=== PATIENT | female | born 1965 | race Hispanic/Latino ===

== ENCOUNTER → 2017-05-21 | Outpatient (CLI) | payer MEDICARE ==
[2017-05-21 08:28] VITALS: BP 140/72
== END | disposition home or self-care (01) ==
LOC: WHH 08:00
PROVIDERS: ATTEND Family Medicine
DX: E11.622 Type 2 diabetes mellitus with other skin ulcer (principal); L97.821 Non-pressure chronic ulcer of other part of left lower leg limited to breakdown of skin; I10 Essential (primary) hypertension; G89.4 Chronic pain syndrome; E66.01 Morbid (severe) obesity due to excess calories; E11.51 Type 2 diabetes mellitus with diabetic peripheral angiopathy without gangrene; E11.319 Type 2 diabetes mellitus with unspecified diabetic retinopathy without macular edema; G47.30 Sleep apnea, unspecified; E78.5 Hyperlipidemia, unspecified
CPT/HCPCS: A6253; A6452; G0463

== ENCOUNTER → 2017-05-26 | Outpatient (CLI) | payer MEDICARE ==
[~2017-05-26] MED LIST: LIDOCAINE/PRILOCAINE CREAM 5GM TUBE TP ONE; SANTYL AUTOSUB TO MEDIHONEY FOR INPT TP ONE
[2017-05-26 18:41] VITALS: BP 139/72
== END | disposition home or self-care (01) ==
LOC: WHH 13:45
PROVIDERS: ATTEND Family Medicine
DX: T81.89XD Other complications of procedures, not elsewhere classified, subsequent encounter (principal); E11.51 Type 2 diabetes mellitus with diabetic peripheral angiopathy without gangrene; G47.30 Sleep apnea, unspecified; G89.4 Chronic pain syndrome; E66.01 Morbid (severe) obesity due to excess calories; E11.319 Type 2 diabetes mellitus with unspecified diabetic retinopathy without macular edema; I10 Essential (primary) hypertension; E78.5 Hyperlipidemia, unspecified; Y83.8 Other surgical procedures as the cause of abnormal reaction of the patient, or of later complication, without mention of misadventure at the time of the procedure
CPT/HCPCS: 11042; A4450; A6253; J3490

== ENCOUNTER → 2017-05-27 | Outpatient (CLI) | payer MEDICARE ==
[2017-05-27 15:38] VITALS: BP 141/86
== END | disposition home or self-care (01) ==
LOC: WHH 14:00
PROVIDERS: ATTEND Family Medicine
DX: E11.622 Type 2 diabetes mellitus with other skin ulcer (principal); L97.821 Non-pressure chronic ulcer of other part of left lower leg limited to breakdown of skin; E11.51 Type 2 diabetes mellitus with diabetic peripheral angiopathy without gangrene; E11.319 Type 2 diabetes mellitus with unspecified diabetic retinopathy without macular edema; G89.4 Chronic pain syndrome; I10 Essential (primary) hypertension; E78.5 Hyperlipidemia, unspecified; G47.30 Sleep apnea, unspecified; E66.01 Morbid (severe) obesity due to excess calories
CPT/HCPCS: A6252; G0463

== ENCOUNTER → 2017-05-28 | Outpatient (CLI) | payer MEDICARE ==
[2017-05-28 08:27] VITALS: BP 135/76
== END | disposition home or self-care (01) ==
LOC: WHH 08:00
PROVIDERS: ATTEND Family Medicine
DX: E11.622 Type 2 diabetes mellitus with other skin ulcer (principal); L97.821 Non-pressure chronic ulcer of other part of left lower leg limited to breakdown of skin; E11.51 Type 2 diabetes mellitus with diabetic peripheral angiopathy without gangrene; E11.319 Type 2 diabetes mellitus with unspecified diabetic retinopathy without macular edema; G89.4 Chronic pain syndrome; I10 Essential (primary) hypertension; E78.5 Hyperlipidemia, unspecified; G47.30 Sleep apnea, unspecified; E66.01 Morbid (severe) obesity due to excess calories
CPT/HCPCS: A6253; G0463

== ENCOUNTER → 2017-05-29 | Outpatient (CLI) | payer MEDICARE ==
[2017-05-29 08:16] VITALS: BP 135/53
== END | disposition home or self-care (01) ==
LOC: WHH 08:00
PROVIDERS: ATTEND Family Medicine
DX: E11.622 Type 2 diabetes mellitus with other skin ulcer (principal); L97.821 Non-pressure chronic ulcer of other part of left lower leg limited to breakdown of skin; E11.51 Type 2 diabetes mellitus with diabetic peripheral angiopathy without gangrene; E11.319 Type 2 diabetes mellitus with unspecified diabetic retinopathy without macular edema; G89.4 Chronic pain syndrome; I10 Essential (primary) hypertension; E78.5 Hyperlipidemia, unspecified; E66.01 Morbid (severe) obesity due to excess calories; G47.30 Sleep apnea, unspecified
CPT/HCPCS: A6253; G0463

== ENCOUNTER → 2017-06-02 | Outpatient (CLI) | payer MEDICARE ==
[~2017-06-02] MED LIST changes: -SANTYL AUTOSUB TO MEDIHONEY FOR INPT TP ONE
[2017-06-02 17:48] VITALS: BP 122/77
== END | disposition home or self-care (01) ==
LOC: WHH 13:00
PROVIDERS: ATTEND Family Medicine
DX: E11.622 Type 2 diabetes mellitus with other skin ulcer (principal); L97.821 Non-pressure chronic ulcer of other part of left lower leg limited to breakdown of skin; E11.51 Type 2 diabetes mellitus with diabetic peripheral angiopathy without gangrene; E11.319 Type 2 diabetes mellitus with unspecified diabetic retinopathy without macular edema; G89.4 Chronic pain syndrome; I10 Essential (primary) hypertension; E78.5 Hyperlipidemia, unspecified; G47.30 Sleep apnea, unspecified; E66.01 Morbid (severe) obesity due to excess calories
CPT/HCPCS: 11042; 11045; A6252; J3490

== ENCOUNTER → 2017-06-09 | Outpatient (CLI) | payer MEDICARE ==
[~2017-06-09] MED LIST changes: +SANTYL AUTOSUB TO MEDIHONEY FOR INPT TP ONE
[2017-06-09 16:26] VITALS: BP 116/71
== END | disposition home or self-care (01) ==
LOC: WHH 13:00
PROVIDERS: ATTEND Family Medicine
DX: T81.89XD Other complications of procedures, not elsewhere classified, subsequent encounter (principal); E11.319 Type 2 diabetes mellitus with unspecified diabetic retinopathy without macular edema; E11.51 Type 2 diabetes mellitus with diabetic peripheral angiopathy without gangrene; G89.4 Chronic pain syndrome; E66.01 Morbid (severe) obesity due to excess calories; G47.30 Sleep apnea, unspecified; I10 Essential (primary) hypertension; E78.5 Hyperlipidemia, unspecified; Y83.8 Other surgical procedures as the cause of abnormal reaction of the patient, or of later complication, without mention of misadventure at the time of the procedure
CPT/HCPCS: 11042; 11045; A6253; J3490

== ENCOUNTER → 2017-06-23 | Outpatient (CLI) | payer MEDICARE ==
[~2017-06-23] MED LIST changes: -SANTYL AUTOSUB TO MEDIHONEY FOR INPT TP ONE
[2017-06-23 17:42] VITALS: BP 150/86
== END | disposition home or self-care (01) ==
LOC: WHH 13:00
PROVIDERS: ATTEND Family Medicine
DX: T81.89XD Other complications of procedures, not elsewhere classified, subsequent encounter (principal); E11.622 Type 2 diabetes mellitus with other skin ulcer; L97.821 Non-pressure chronic ulcer of other part of left lower leg limited to breakdown of skin; E11.319 Type 2 diabetes mellitus with unspecified diabetic retinopathy without macular edema; E11.51 Type 2 diabetes mellitus with diabetic peripheral angiopathy without gangrene; G89.4 Chronic pain syndrome; I10 Essential (primary) hypertension; E78.5 Hyperlipidemia, unspecified; G47.30 Sleep apnea, unspecified; E66.01 Morbid (severe) obesity due to excess calories; Y83.8 Other surgical procedures as the cause of abnormal reaction of the patient, or of later complication, without mention of misadventure at the time of the procedure
CPT/HCPCS: 11042; A4450; A6253; J3490

== ENCOUNTER → 2017-06-26 | Outpatient (CLI) | payer MEDICARE ==
[2017-06-26 17:28] VITALS: BP 137/89
== END | disposition home or self-care (01) ==
LOC: WHH 14:30
PROVIDERS: ATTEND Family Medicine
DX: T81.89XD Other complications of procedures, not elsewhere classified, subsequent encounter (principal); S81.802D Unspecified open wound, left lower leg, subsequent encounter; G89.4 Chronic pain syndrome; E11.319 Type 2 diabetes mellitus with unspecified diabetic retinopathy without macular edema; E11.51 Type 2 diabetes mellitus with diabetic peripheral angiopathy without gangrene; E66.01 Morbid (severe) obesity due to excess calories; G47.30 Sleep apnea, unspecified; I10 Essential (primary) hypertension; E78.5 Hyperlipidemia, unspecified; Y83.8 Other surgical procedures as the cause of abnormal reaction of the patient, or of later complication, without mention of misadventure at the time of the procedure
CPT/HCPCS: 15271; A4450; A6197; Q4133

== ENCOUNTER 2017-07-03 14:30 | Outpatient (CLI) | payer MEDICARE ==
[2017-07-03 16:31] VITALS: BP 118/80
== END 2017-07-03 17:00 ==
LOC: WHH 14:30
PROVIDERS: ATTEND Family Medicine
DX: T81.89XD Other complications of procedures, not elsewhere classified, subsequent encounter (principal); S81.802D Unspecified open wound, left lower leg, subsequent encounter; G89.4 Chronic pain syndrome; E11.319 Type 2 diabetes mellitus with unspecified diabetic retinopathy without macular edema; E11.51 Type 2 diabetes mellitus with diabetic peripheral angiopathy without gangrene; E66.01 Morbid (severe) obesity due to excess calories; G47.30 Sleep apnea, unspecified; I10 Essential (primary) hypertension; E78.5 Hyperlipidemia, unspecified; X58.XXXD Exposure to other specified factors, subsequent encounter; Y83.8 Other surgical procedures as the cause of abnormal reaction of the patient, or of later complication, without mention of misadventure at the time of the procedure
CPT/HCPCS: 15271; A6197; A6450; J3490; Q4133

== ENCOUNTER → 2018-10-14 | Outpatient (CLI) | payer MEDICARE ==
--- NOTE | 2018-10-15 02:00 | NUR ---
CURRENT MEDICATION LIST: THYRO BLOOD PRESSURE, PRAVASTATIN CHOLESTEROL, GABBAPATIN NERVE, DULAXATIN DEPRESSION, BIOTIN, VITAMIN D, B 12. Addendum: 10/15/18 at 0202 by NYDIA ELAINELT Amended: Links added.
== END | disposition home or self-care (01) ==
LOC: SLP 20:37
PROVIDERS: ATTEND Internal Medicine
DX: G47.33 Obstructive sleep apnea (adult) (pediatric) (principal)
CPT/HCPCS: 95810

== ENCOUNTER → 2018-10-20 | Outpatient (CLI) | payer MEDICARE ==
--- NOTE | 2018-10-21 05:24 | NUR ---
FINAL CPAP PRESSURE SETTING: AUTOSET CPAP MAX PRESSURE 20 CM H2O, MIN PRESSURE 10 CM H2O. Addendum: 10/21/18 at 0525 by NYDIA NORRIS Amended: Links added.
== END | disposition home or self-care (01) ==
LOC: SLP 20:33
PROVIDERS: ATTEND Internal Medicine
DX: G47.33 Obstructive sleep apnea (adult) (pediatric) (principal)
CPT/HCPCS: 95811

== ENCOUNTER → 2023-02-28 | Outpatient (CLI) | payer OTHER, MEDICARE | END | disposition home or self-care (01) | LOC: SHCH 08:07 | PROVIDERS: ATTEND Internal Medicine Cardiovascular Disease | DX: I87.2 Venous insufficiency (chronic) (peripheral) (principal) | CPT/HCPCS: 93970 ==

== ENCOUNTER → 2023-06-25 | Outpatient (CLI) | payer OTHER, MEDICARE ==
[2023-06-25 12:20] LABS: BASOPHILS # (AUTO) 0.07 K/uL (0.00-0.20); EOSINOPHILS # (AUTO) 0.15 K/uL (0.00-0.70); EOSINOPHILS % (AUTO) 2.2 % (0.0-8.0); HEMATOCRIT 35.3 % (36-48); IMMATURE GRANULOCYTE ABSOLUTE 0.03 K/uL (0-1); LYMPHOCYTES % (AUTO) 28.8 % (21.0-51.0); MEAN CORPUSCULAR HEMOGLOBIN 30.1 pg (27.0-33.0); MEAN CORPUSCULAR HGB CONC 31.4 g/dL (32.0-36.0); MEAN CORPUSCULAR VOLUME 95.7 fL (79-99); MONOCYTES # (AUTO) 0.4 K/uL (0.1-1.0); MONOCYTES % (AUTO) 6.3 % (3.0-13.0); NEUTROPHILS # (AUTO) 4.2 K/uL (1.8-7.7); NEUTROPHILS % (AUTO) 61.3 % (40.0-77.0); PLATELET COUNT (AUTO) 317 K/uL (130-400); RED BLOOD CELL COUNT(AUTO) 3.69 MIL/uL (4.00-5.50); RED CELL DISTRIBUTION WIDTH 16.2 % (11.0-15.5); WHITE BLOOD COUNT (AUTO) 6.8 K/uL (4.8-10.8)
[2023-06-25 12:29] LABS: INR <= 0.93 (0.85-1.15); PROTHROMBIN TIME 10.5 SEC (9.6-11.6)
[2023-06-25 12:31] LABS: PARTIAL THROMBOPLASTIN TIME 27.2 SEC (26.3-35.5)
[2023-06-25 12:33] LABS: POTASSIUM 3.9 mmol/L (3.5-5.1)
== END | disposition home or self-care (01) ==
LOC: LAB 08:59
PROVIDERS: ATTEND Internal Medicine Cardiovascular Disease
DX: I87.2 Venous insufficiency (chronic) (peripheral) (principal); I87.1 Compression of vein; M79.89 Other specified soft tissue disorders; Z79.899 Other long term (current) drug therapy; E66.01 Morbid (severe) obesity due to excess calories; E11.9 Type 2 diabetes mellitus without complications; I10 Essential (primary) hypertension
CPT/HCPCS: 36415; 80048; 85025; 85610; 85730

== ENCOUNTER 2023-07-04 18:17 | Emergency (ER) | payer OTHER, MEDICARE ==
[~2023-07-04] VITALS: Ht 157.5 cm; Wt 99.8 kg
[2023-07-04] MEDS: HYDROCODONE/ACETAMINOPHEN 5/325 MG TAB PO ONE (20:32)
[2023-07-04 20:44] VITALS: BP 134/72; PULSE 84; RESP 16; O2SAT 99
== END 2023-07-04 20:54 | disposition home or self-care (01) ==
LOC: EDH 18:17
DX: S40.012A Contusion of left shoulder, initial encounter (principal); S60.212A Contusion of left wrist, initial encounter; S00.33XA Contusion of nose, initial encounter; I10 Essential (primary) hypertension; E11.9 Type 2 diabetes mellitus without complications; X58.XXXA Exposure to other specified factors, initial encounter; Y93.01 Activity, walking, marching and hiking; Y92.89 Other specified places as the place of occurrence of the external cause; Y99.8 Other external cause status
CPT/HCPCS: 70486; 73030; 73130

== ENCOUNTER 2023-08-26 15:48 | Emergency (ER) | payer OTHER, MEDICARE ==
[~2023-08-26] VITALS: Ht 157.5 cm; Wt 90.7 kg
[2023-08-26 17:02] LABS: HEMATOCRIT 32.3 % (36-48); MEAN CORPUSCULAR HEMOGLOBIN 30.9 pg (27.0-33.0); MEAN CORPUSCULAR HGB CONC 32.8 g/dL (32.0-36.0); MEAN CORPUSCULAR VOLUME 94.2 fL (79-99); RED BLOOD CELL COUNT(AUTO) 3.43 MIL/uL (4.00-5.50); RED CELL DISTRIBUTION WIDTH 14.2 % (11.0-15.5); WHITE BLOOD COUNT (AUTO) 6.4 K/uL (4.8-10.8)
[2023-08-26 17:03] LABS: CREATININE 1.2 mg/dL (0.5-1.0); POTASSIUM 4.2 mmol/L (3.5-5.1)
[2023-08-26] MEDS: MORPHINE 4 MG SYG ONE (17:50)
[2023-08-26] MEDS: MORPHINE 8MG VIAL IM ONE (17:51)
[2023-08-26 20:02] VITALS: BP 120/69; PULSE 68; RESP 18; O2SAT 100
== END 2023-08-26 20:00 | disposition home or self-care (01) ==
LOC: EDH 15:48
DX: M25.522 Pain in left elbow (principal); M25.562 Pain in left knee; E11.9 Type 2 diabetes mellitus without complications; E78.00 Pure hypercholesterolemia, unspecified; M19.90 Unspecified osteoarthritis, unspecified site; Z90.49 Acquired absence of other specified parts of digestive tract; Z98.890 Other specified postprocedural states; W10.1XXA Fall (on)(from) sidewalk curb, initial encounter; Y93.89 Activity, other specified; Y92.89 Other specified places as the place of occurrence of the external cause; Y99.8 Other external cause status
CPT/HCPCS: 99285; 70450; 71045; 82550; 80048; 85027; 36415; 73080; 73562; 72170; 72125; 96372; J2270

== ENCOUNTER → 2023-09-02 | Outpatient (CLI) | payer OTHER, MEDICARE ==
[2023-09-02 12:10] LABS: BASOPHILS # (AUTO) 0.06 K/uL (0.00-0.20); BASOPHILS % (AUTO) 0.9 % (0.0-5.0); EOSINOPHILS % (AUTO) 3.1 % (0.0-8.0); HEMATOCRIT 35.1 % (36-48); IMMATURE GRANULOCYTE ABSOLUTE 0.02 K/uL (0-1); LYMPHOCYTES # (AUTO) 2.2 K/uL (1.0-4.8); LYMPHOCYTES % (AUTO) 34.3 % (21.0-51.0); MEAN CORPUSCULAR HEMOGLOBIN 31.1 pg (27.0-33.0); MEAN CORPUSCULAR HGB CONC 32.5 g/dL (32.0-36.0); MEAN CORPUSCULAR VOLUME 95.6 fL (79-99); MONOCYTES # (AUTO) 0.4 K/uL (0.1-1.0); MONOCYTES % (AUTO) 6.1 % (3.0-13.0); NEUTROPHILS # (AUTO) 3.5 K/uL (1.8-7.7); NEUTROPHILS % (AUTO) 55.3 % (40.0-77.0); PLATELET COUNT (AUTO) 280 K/uL (130-400); RED BLOOD CELL COUNT(AUTO) 3.67 MIL/uL (4.00-5.50); RED CELL DISTRIBUTION WIDTH 14.1 % (11.0-15.5); WHITE BLOOD COUNT (AUTO) 6.4 K/uL (4.8-10.8)
[2023-09-02 12:18] LABS: INR <= 0.93 (0.85-1.15); PROTHROMBIN TIME 10.6 SEC (9.6-11.6)
[2023-09-02 12:19] LABS: PARTIAL THROMBOPLASTIN TIME 26.5 SEC (26.3-35.5)
[2023-09-02 12:25] LABS: CREATININE 1.1 mg/dL (0.5-1.0); POTASSIUM 4.6 mmol/L (3.5-5.1)
== END | disposition home or self-care (01) ==
LOC: LAB 10:33
PROVIDERS: ATTEND Internal Medicine Cardiovascular Disease
DX: I87.2 Venous insufficiency (chronic) (peripheral) (principal); I87.1 Compression of vein; E11.65 Type 2 diabetes mellitus with hyperglycemia
CPT/HCPCS: 36415; 80048; 85025; 85610; 85730

== ENCOUNTER → 2023-12-16 | Outpatient (CLI) | payer OTHER, MEDICARE | END | disposition home or self-care (01) | LOC: SHCH 11:27 | PROVIDERS: ATTEND Internal Medicine Cardiovascular Disease | DX: I70.203 Unspecified atherosclerosis of native arteries of extremities, bilateral legs (principal); I87.2 Venous insufficiency (chronic) (peripheral); I87.1 Compression of vein | CPT/HCPCS: 93925 ==

== ENCOUNTER → 2024-01-18 | Outpatient (CLI) | payer OTHER, MEDICARE ==
[2024-01-18 12:38] LABS: BASOPHILS # (AUTO) 0.05 K/uL (0.00-0.20); BASOPHILS % (AUTO) 0.9 % (0.0-5.0); EOSINOPHILS # (AUTO) 0.21 K/uL (0.00-0.70); EOSINOPHILS % (AUTO) 3.9 % (0.0-8.0); HEMATOCRIT 31.7 % (36-48); LYMPHOCYTES # (AUTO) 1.8 K/uL (1.0-4.8); LYMPHOCYTES % (AUTO) 33.3 % (21.0-51.0); MEAN CORPUSCULAR HEMOGLOBIN 29.7 pg (27.0-33.0); MEAN CORPUSCULAR HGB CONC 31.2 g/dL (32.0-36.0); MEAN CORPUSCULAR VOLUME 95.2 fL (79-99); MONOCYTES # (AUTO) 0.5 K/uL (0.1-1.0); MONOCYTES % (AUTO) 9.3 % (3.0-13.0); NEUTROPHILS # (AUTO) 2.8 K/uL (1.8-7.7); NEUTROPHILS % (AUTO) 52.6 % (40.0-77.0); PLATELET COUNT (AUTO) 247 K/uL (130-400); RED BLOOD CELL COUNT(AUTO) 3.33 MIL/uL (4.00-5.50); RED CELL DISTRIBUTION WIDTH 13.7 % (11.0-15.5); WHITE BLOOD COUNT (AUTO) 5.4 K/uL (4.8-10.8)
[2024-01-18 12:47] LABS: INR 0.95 (0.85-1.15); PROTHROMBIN TIME 10.3 SEC (9.6-11.6)
[2024-01-18 12:48] LABS: PARTIAL THROMBOPLASTIN TIME 25.4 SEC (26.3-35.5)
[2024-01-18 13:04] LABS: CREATININE 1.2 mg/dL (0.5-1.0)
== END | disposition home or self-care (01) ==
LOC: LAB 11:22
PROVIDERS: ATTEND Internal Medicine Cardiovascular Disease
DX: Z01.812 Encounter for preprocedural laboratory examination (principal); I87.2 Venous insufficiency (chronic) (peripheral); I87.1 Compression of vein; M79.89 Other specified soft tissue disorders; Z79.899 Other long term (current) drug therapy; I10 Essential (primary) hypertension; E78.5 Hyperlipidemia, unspecified; Z68.42 Body mass index [BMI] 45.0-49.9, adult; E66.01 Morbid (severe) obesity due to excess calories
CPT/HCPCS: 36415; 80048; 85025; 85610; 85730

== ENCOUNTER → 2024-09-08 | Outpatient (CLI) | payer MEDICARE ==
--- NOTE | 2024-09-08 13:40 | NUR ---
MBSS COMPLETED (OUTPATIENT). No aspiration/no penetration. Recommend regular solids, thin liquids and pills whole with liquids as tolerated. MAY WANT TO CONSIDER GI CONSULT FOR UPPER GI SERIES TO FURTHER EVALUATE ESOPHAGEAL FUNCTION DUE TO COMPLAINS OF GLOBUS SENSATION. Compensatory strategies: 1. sit upright during oral intake 2. extra dry swallows SLOT SERVICE SPECIALIST reviewed results and recommendations with patient. SLOT SERVICE SPECIALIST educated patient on risks and consequences of aspiration. Speech therapy not warranted at this time. All questions answered. Addendum: 09/08/[address] EDIN DELANEY Amended: Links added.
--- NOTE | 2024-09-08 17:11 | HMCIMG ---
MODIFIED BARIUM SWALLOW W CINE REASON: Dysphagia, unspecified, Feeding difficulties, unspecified. COMPARISON: None TECHNIQUE: Modified barium swallow study was performed. FINDINGS: Please see procedure report by the referring speech therapist. IMPRESSION: Modified barium swallow study.
== END | disposition home or self-care (01) ==
LOC: RAH 12:17
PROVIDERS: ATTEND Internal Medicine Gastroenterology
DX: R13.10 Dysphagia, unspecified (principal); R63.30 Feeding difficulties, unspecified
CPT/HCPCS: 74230; 92611

== ENCOUNTER → 2024-12-20 | Outpatient (CLI) | payer MEDICARE ==
--- NOTE | 2024-12-20 13:13 | HMCIMG ---
DOUBLE CONTRAST UPPER GI SERIES: Finding: The study was performed using provocative maneuvers After swallowing effervescent crystal and thick barium, there is no definite intrinsic or extrinsic lesion seen in the esophagus. There is reflux with delayed emptying in the distal esophagus secondary to small gastric pouch Patient is status post gastrectomy with gastrojejunostomy anastomosis appears to be patent.. Fluoroscopy time: 1.3 minutes IMPRESSION: Esophageal reflux and grade 1 due to lack small gastric pouch with delayed emptying. Status post partial gastrectomy with gastrojejunostomy anastomosis appears to be patent
== END | disposition home or self-care (01) ==
LOC: RAH 08:17
PROVIDERS: ATTEND Internal Medicine Gastroenterology
DX: K21.9 Gastro-esophageal reflux disease without esophagitis (principal); R13.10 Dysphagia, unspecified; Z90.3 Acquired absence of stomach [part of]
CPT/HCPCS: 74240